=== PATIENT | female | born 1940 | race Caucasian/White ===

== ENCOUNTER 2017-04-08 10:46 | Emergency (ER) | payer MEDICARE ==
[2017-04-08] MEDS ORDERED: ONDANSETRON HCL IV 4 MG/2 ML VIAL IV ONE (11:09)
[2017-04-08] MEDS ORDERED: 0.9 % SODIUM CHLORIDE 1,000 ML BAG IV ONE (11:09)
[2017-04-08] MEDS ORDERED: HYDROMORPHONE HCL 1 MG/ML SYRINGE IVP ONE (11:10)
--- NOTE | 2017-04-08 11:15 | Emergency Department Record ---
History of Present Illness - General Chief Complaint: Abdominal Pain Stated Complaint: abd pain and cramps Time Seen by Provider: 04/08/17 11:02 Source: Patient Mode of Arrival: Ambulatory Limitations: No limitations - History of Present Illness Initial Comments: The patient is here due to crampy diffuse AP off and on for 4 days. It started 4 days ago and then did improve somewhat and then worsened in the last 24 hours. She has had loose stools and did take some Pepto Bismal yesterday. Today she stated she had some dark diarrheal stools. The patient denies any fever, chills, back pain, CP or SOB. The patient denies any hx of any abdominal surgeries. MD Complaint: Abdominal pain Onset/Timin -: Days(s) Radiation: LLQ, RLQ Severity: Moderate Quality: Aching, Cramping Improves With: Nothing Treatments Prior to Arrival: Antacids - Related Data Patient : No Home Medications Medication Instructions Recorded Confirmed Last Taken Loperamide HCl [Imodium A-D] 2 mg PO DAILY PRN 04/08/17 04/08/17 1 Day Ago ~04/07/17 Previous Rx's Medication Instructions Recorded Acetaminop W/ Codeine 300/30Mg 1 tab PO Q6H #12 tab 04/08/17 [Tylenol #3] Ondansetron [Zofran Odt] 4 mg SL .Q4-6H PRN #12 tab.rapdis 04/08/17 Sulfamethoxazole/Trimethoprim 1 tab PO BID #10 tab 04/08/17 [Bactrim Ds] Allergies Allergy/AdvReac Type Severity Reaction Status Date / Time bee venom protein (honey bee) Allergy SWELLING Verified 04/08/17 11:06 OF THE FACE Travel Screening - Travel/Exposure Within Last 30 Days Have you traveled within the last 30 days?: No - Travel/Exposure Within Last Year Have you traveled outside the [place] in the last year?: No - Additonal Travel Details Have you been exposed to anyone with a communicable illness?: No - Travel Symptoms Symptom Screening: None Review of Systems Constitutional: Denies: Chills, Fever, Malaise Eyes: Denies: Eye discharge ENT: Denies: Congestion Respiratory: Denies: Cough, Dyspnea Past Medical History - SOCIAL HISTORY Smoking Status: Former smoker Alcohol Use: None Drug Use: None - RESPIRATORY Hx Respiratory Disorders: No - CARDIOVASCULAR Hx Cardio Disorders: No - NEURO Hx Neuro Disorders: No - GI Hx Diverticulitis: Yes Comment:: gall stones - Hx Genitourinary Disorders: No - ENDOCRINE Hx Diabetes: No Hx Thyroid Disease: No - PSYCH Hx Anxiety: Yes Hx Depression: Yes - HEMATOLOGY/ONCOLOGY Hx Hematology/Oncology Disorders: No Family Medical History Any Significant Family History?: Yes Hx Heart Disease: Father Physical Exam - General General Appearance: Alert, Oriented x3, Cooperative, No acute distress - Head Head exam: Atraumatic, Normocephalic, Normal inspection - Eye Eye exam: Normal appearance, PERRL - Neck Neck exam: Normal inspection, Full ROM. negative: Tenderness - Respiratory Respiratory exam: Normal lung sounds bilaterally. negative: Respiratory distress - Cardiovascular Cardiovascular Exam: Regular rate, Normal rhythm, Normal heart sounds - GI/Abdominal GI/Abdominal exam: Soft, Normal bowel sounds, Tenderness (There is diffuse abdominal tenderness in all 4 quads.). negative: Rebound, Rigid - Extremities Extremities exam: Normal inspection, Full ROM, Normal capillary refill. negative: Tenderness - Neurological Neurological exam: Alert, Normal gait, Oriented X3. negative: Abnormal gait, Motor sensory deficit Course Vital Signs 04/08/17 10:51 Temperature 97.5 F L Pulse Rate 87 Respiratory 16 Rate Blood Pressure 116/61 Pulse Ox 96 - Reevaluation(s) Reevaluation #1: The patient is doing better at this time. She is drinking her oral contrast and feels less pain with no nausea. 04/08/17 11:34 Reevaluation #2: The patient is doing better. Presently she has no pain, nausea or vomiting. On exam her abdomen was very soft and nontender in 4 quads. I did explain to her that the CT did not demonstrate any cause of the pain but she will be referred to Dr. Richardson for a Colonoscopy. 04/08/17 13:58 Medical Decision Making - Data Complexity MDM Data: Labs Ordered and/or Reviewed, X-Ray Ordered and/or Reviewed - Lab Data Result diagrams: 04/08/17 11:10 04/08/17 11:10 - Radiology Data Radiology results: Report reviewed (CT: Distended GB but no signs of active infection. Focal thickening proximal descending colon, Rec Colonoscopy.) Disposition Disposition: Discharge Clinical Impression: Diarrhea Qualifiers: Diarrhea type: unspecified type Qualified Code(s): R19.7 - Diarrhea, unspecified Disposition: Home, Self-Care Condition: (2) Stable Instructions: Abdominal Pain (ED) Additional Instructions: Please take the Tylenol # 3 and Zofran if needed. Please take the Bactrim as directed. Please see your PCP for recheck later this week and return to the ER for any worsening pain, fever, or vomiting. Prescriptions: Acetaminop W/ Codeine 300/30Mg [Tylenol #3] 1 tab PO Q6H #12 tab Ondansetron [Zofran Odt] 4 mg SL .Q4-6H PRN #12 tab.rapdis PRN Reason: Nausea Sulfamethoxazole/Trimethoprim [Bactrim Ds] 1 tab PO BID #10 tab Referrals: [facility] [Provider Group] Forms: Patient Portal Access Time of Disposition: 14:03 Quality - Quality Measures Quality Measures: N/A - Blood Pressure Screening View Details: Yes Does Patient Have Any of the Following: No Blood Pressure Classification: Normal BP Reading Systolic Measurement: 116 Diastolic Measurement: 61 Screening for High Blood Pressure: < Normal BP, F/U Not Required > [G8783]
[2017-04-08 11:21] LABS: BASO % 0.2 % (0-6); EOS % 1.1 % (0-6); GRAN % 76.7 % (47-80); HEMATOCRIT 41.3 % (35.0-47.0); HEMOGLOBIN 14.4 gm/dl (11.6-16.0); LYMPH % 11.6 % (16-45); MEAN CELL VOLUME 93.9 fl (81-97); MEAN CORPUSCULAR HEMOGLOBIN 32.7 pg (27-33); MEAN CORPUSCULAR HGB CONC 34.9 g/dl (32-36); MEAN PLATELET VOLUME 8.9 fl (7.4-10.4); MONO % 10.4 % (0-9); PLATELET COUNT 282 K/uL (130-400); WHITE BLOOD COUNT W/O DIFF 6.4 K/uL (4.2-12.2)
[2017-04-08 11:22] LABS: URINE APPEARANCE CLEAR; URINE BILIRUBIN NEGATIVE (NEGATIVE); URINE BLOOD MODERATE (NEGATIVE); URINE COLOR YELLOW; URINE GLUCOSE (UA) NEGATIVE (NEGATIVE); URINE KETONE NEGATIVE (NEGATIVE); URINE LEUKOCYTE ESTERASE MODERATE (NEGATIVE); URINE NITRITE POSITIVE (NEGATIVE); URINE PROTEIN NEGATIVE (NEGATIVE); URINE UROBILINOGEN 0.2 E.U./dL (0.20 - 1.00)
[2017-04-08 11:38] LABS: BLOOD UREA NITROGEN 7 mg/dL (8-23); CREATININE 0.6 mg/dL (0.5-0.9); EST GLOMERULAR FILTRATION RATE > 60 mL/min; TOTAL PROTEIN 7.4 g/dL (6.6-8.7)
[2017-04-08 11:40] LABS: GLUCOSE,RANDOM 94 mg/dL (74-109); URINE BACTERIA 2+; URINE MUCUS LIGHT; URINE WBC 16 - 20 (0-2/hpf)
[2017-04-08 11:43] LABS: ALBUMIN 4.3 g/dL (4.0-5.0); ALKALINE PHOSPHATASE 58 U/L (35-104); ALT/SGPT 13 U/L (<33); AST/SGOT 27 U/L (10.0-35.0); LIPASE 11 U/L (13-60)
[2017-04-08 11:44] LABS: BILIRUBIN,DIRECT < 0.2 mg/dL (0-0.3)
--- NOTE | 2017-04-08 14:46 | CT SCAN REPORT ---
EXAM: EMERGENCY CT OF THE ABDOMEN AND PELVIS WITH CONTRAST HISTORY: ABDOMINAL PAIN, CRAMPING, DIARRHEA. TECHNIQUE: Axial CT scan of the abdomen and pelvis was performed following both oral and IV contrast administration, utilizing a dose of 100 ml of Omnipaque 300 as the IV contrast. Comparison: No prior CT with which to compare. FINDINGS: The gallbladder is relatively distended although no actual gallstones are seen and no adjacent inflammatory type change is identified. No definite hepatic, splenic, adrenal, pancreatic, or renal mass identified. Oral contrast given has passed throughout the small bowel to the rectum with no bowel obstruction evident. There is a focal area of persistent thickening of the colon wall in the region of the upper descending colon evident on both the routine series and the delay series. There is no obstruction proximal to this and this could just be relate to some spasm, but the possibility of a developing annular mass in this location cannot be excluded. Follow-up colonoscopy is suggested. The appendix is visualized and appears negative. Mildly thick walled appearance of the urinary bladder is nonspecific, although may simply be due to incomplete distention. There is some bibasilar linear fibrosis or discoid atelectasis. No free intraperitoneal air or free intraperitoneal fluid identified. Prominent degenerative change in the facets of the lower lumbar spine and degenerative disk disease at the lumbosacral interspace. 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 IMPRESSION: 1. APPEARANCE SUGGESTING A FOCAL WALL THICKENING IN THE REGION OF THE UPPER DESCENDING COLON, NONSPECIFIC, BUT A DEVELOPING ANNULAR CARCINOMA CANNOT BE EXCLUDED AND COLONOSCOPY IS SUGGESTED. THERE IS NO ASSOCIATED BOWEL OBSTRUCTION WITH THIS. 2. DISTENDED GALLBLADDER, BUT NO GALLSTONES OR OTHER FINDINGS TO SUGGEST ACUTE CHOLECYSTITIS EVIDENT. 3. DEGENERATIVE CHANGE IN THE LOWER LUMBAR SPINE, PUBIC SYMPHYSIS, AND RIGHT HIP. 4. DIFFUSELY MILDLY THICK WALLED APPEARANCE OF THE BLADDER IS NONSPECIFIC ALTHOUGH MAY SIMPLY BE DUE TO INCOMPLETE DISTENTION. JOB NUMBER: [id number] [facility]
== END 2017-04-08 14:20 | disposition home or self-care (01) ==
LOC: ER 10:46
DX: R19.7 Diarrhea, unspecified (principal); R10.84 Generalized abdominal pain
CPT/HCPCS: 99284 ×2; 96374; 96375; 96361; 83605; 83690; 85025; 80076; 80048; 81001; 89055; 82272; 74177; Q9967; J2405; J1170; J7030

== ENCOUNTER 2017-09-10 22:00 | Emergency (ER) | payer MEDICARE ==
[2017-09-10] MEDS ORDERED: ONDANSETRON HCL IV 4 MG/2 ML VIAL IVP ONE ×2 (22:05→23:43)
[2017-09-10] MEDS ORDERED: MORPHINE SULFATE 4MG/ML PREFILLED SYRINGE IVP ONE ×2 (22:05→23:43)
--- NOTE | 2017-09-10 22:10 | Emergency Department Record ---
History of Present Illness - General Chief Complaint: Fall Injury Stated Complaint: FELL AT HOME/ PAIN LT HIP Time Seen by Provider: 09/10/17 22:04 Source: Patient, EMS Mode of Arrival: EMS Limitations: No limitations - History of Present Illness Initial Comments: 77 yo female presents to ED for evaluation of left hip pain following a mechanical fall JPTA. Patient denies injury to the head or neck, complains of moderate-severe left hip pain following her fall. Patient denies numbness or tingling to the left lower extremity, denies pain to the knee or ankle on examination. Patient denies health problems at her baseline, and denies any medications or allergies to medications. MD Complaint: Fall Onset/Timin -: Minutes(s) Fall From: Standing When Fall Occurred: Just prior to arrival Fall Witnessed: No Place Fall Occurred: Home Loss of Consciousness: None Prolonged Down Time?: No Symptoms Prior to Fall: None Location: Pelvis Severity: Severe Quality: Aching Context: Tripped/slipped - Nidia Coma Scale Eye Response: (4) Open spontaneously Motor Response: (6) Obeys commands Verbal Response: (5) Oriented Nidia Total: 15 - Related Data Allergies Allergy/AdvReac Type Severity Reaction Status Date / Time bee venom protein (honey bee) Allergy SWELLING Verified 04/08/17 11:06 OF THE FACE Review of Systems Constitutional: Denies: Chills, Fever, Malaise, Night sweats Eyes: Denies: Eye discharge, Eye pain ENT: Denies: Congestion, Ear pain, Epistaxis Respiratory: Denies: Cough, Dyspnea Cardiovascular: Denies: Chest pain, Dyspnea on exertion Endocrine: Denies: Fatigue, Heat or cold intolerance Gastrointestinal: Denies: Abdominal pain, Nausea, Vomiting Genitourinary: Denies: Incontinence, Retention Musculoskeletal: Reports: Arthralgia. Denies: Back pain, Gout, Joint swelling Skin: Denies: Bruising, Change in color Neurological: Denies: Confusion, Headache Psychiatric: Denies: Anxiety Hematological/Lymphatic: Denies: Anemia, Blood Clots Past Medical History - SOCIAL HISTORY Smoking Status: Former smoker - RESPIRATORY Hx Respiratory Disorders: No - CARDIOVASCULAR Hx Cardio Disorders: No - NEURO Hx Neuro Disorders: No - GI Hx Diverticulitis: Yes Comment:: gall stones - Hx Genitourinary Disorders: No - ENDOCRINE Hx Diabetes: No Hx Thyroid Disease: No - PSYCH Hx Anxiety: Yes Hx Depression: Yes - HEMATOLOGY/ONCOLOGY Hx Hematology/Oncology Disorders: No Family Medical History Hx Heart Disease: Father Physical Exam - General General Appearance: Alert, Oriented x3, Cooperative, Moderate distress Limitations: No limitations - Head Head exam: Atraumatic, Normocephalic, Normal inspection Head exam detail: negative: Abrasion, Contusion, Aguillon's sign, General tenderness, Hematoma, Laceration - Eye Eye exam: Normal appearance. negative: Conjunctival injection, Periorbital swelling, Periorbital tenderness, Scleral icterus - ENT Ear exam: negative: Auricular hematoma, Auricular trauma Nasal Exam: negative: Active bleeding, Discharge, Dried blood, Foreign body Mouth exam: negative: Drooling, Laceration, Muffled voice, Tongue elevation - Neck Neck exam: Normal inspection. negative: Meningismus, Tenderness - Respiratory Respiratory exam: Normal lung sounds bilaterally. negative: Rales, Respiratory distress, Rhonchi, Stridor - Cardiovascular Cardiovascular Exam: Regular rate, Normal rhythm, Normal heart sounds Peripheral Pulses: 3+: Dorsalis Pedis (L) - GI/Abdominal GI/Abdominal exam: Soft. negative: Rebound, Rigid, Tenderness - Rectal Rectal exam: Deferred - exam: Deferred - Extremities Extremities exam: Tenderness, Other (TTP over the lateral left hip, shortening of the LLE, strong DPP, no pain with palpation over the left knee/ankle on examination.). negative: Calf tenderness, Pedal edema - Back Back exam: Denies: CVA tenderness (R), CVA tenderness (L) - Neurological Neurological exam: Alert, Oriented X3 - Psychiatric Psychiatric exam: Normal affect, Normal mood - Skin Skin exam: Normal color. negative: Abrasion Type of lesion: negative: abrasion Course - Reevaluation(s) Reevaluation #1: 09/10/17 22:51 Labs reviewed, CO2 18, AG 23. Labs are otherwise grossly unremarkable for an acute process. Reevaluation #2: 09/10/17 23:07 Left Hip: Femoral neck fracture Chest: Chronic changes, nothing acute CT Brain: Patient and her family were updated on all results, will initiate transfer to [facility] per patient choice for orthopedic evaluation. Reevaluation #3: 09/10/17 23:23 Case was discussed with Dr. Parks, will accept transfer pending bed assignment. Medical Decision Making - Lab Data Result diagrams: 09/10/17 22:10 09/10/17 22:10 Disposition Disposition: Transfer Clinical Impression: Femoral neck fracture Qualifiers: Encounter type: initial encounter Fracture type: closed Laterality: left Qualified Code(s): S72.002A - Fracture of unspecified part of neck of left femur , initial encounter for closed fracture Disposition: Acute Care Hospital Transfer Transfer To: [facility] Reason For Transfer: Orthopedic Consultation Accepting Physician: Charly Time Discussed w/Accepting Physician: 23:09 Forms: Patient Portal Access Time of Disposition: 23:09 Quality - Quality Measures Quality Measures: N/A - Blood Pressure Screening Does Patient Have Any of the Following: No Blood Pressure Classification: Hypertensive Reading Systolic Measurement: 161 Diastolic Measurement: 101 Screening for High Blood Pressure: < First Hypertensive BP, F/U Documented > [ G8950] First Hypertensive Follow-up Interventions: Referral to alternative/primary care provider.
[2017-09-10 22:15] LABS: BASO % 0.1 % (0-6); EOS % 0.3 % (0-6); GRAN % 78.9 % (47-80); HEMATOCRIT 42.1 % (35.0-47.0); HEMOGLOBIN 14.3 gm/dl (11.6-16.0); LYMPH % 13.7 % (16-45); MEAN CELL VOLUME 91.9 fl (81-97); MEAN CORPUSCULAR HEMOGLOBIN 31.2 pg (27-33); MEAN PLATELET VOLUME 8.9 fl (7.4-10.4); PLATELET COUNT 337 K/uL (130-400); RED BLOOD COUNT 4.58 M/uL (3.80-5.40); RED CELL DISTRIBUTION WIDTH 13.5 % (11.5-14.5); WHITE BLOOD COUNT W/O DIFF 10.5 K/uL (4.2-12.2)
[2017-09-10] MEDS ORDERED: 0.9 % SODIUM CHLORIDE 1000ML 1,000 ML IV SCH (22:15)
[2017-09-10 22:29] LABS: BLOOD UREA NITROGEN 6 mg/dL (8-23); CREATININE 0.6 mg/dL (0.5-0.9); EST GLOMERULAR FILTRATION RATE > 60 mL/min
[2017-09-10 22:30] LABS: TOTAL PROTEIN 7.4 g/dL (6.6-8.7)
[2017-09-10 22:32] LABS: GLUCOSE,RANDOM 108 mg/dL (74-109)
[2017-09-10 22:34] LABS: ALBUMIN 3.7 g/dL (4.0-5.0); ALKALINE PHOSPHATASE 69 U/L (35-104); ALT/SGPT 13 U/L (<33); AST/SGOT 23 U/L (10.0-35.0)
--- NOTE | 2017-09-12 13:58 | CT SCAN REPORT ---
EXAM: CT OF THE BRAIN WITHOUT CONTRAST HISTORY: FALL. TECHNIQUE: CT of the brain without contrast was obtained. Comparison: None. FINDINGS: The globes are intact. The paranasal sinuses and mastoid air cells are unremarkable. No displaced or depressed skull fracture. No intra or extraaxial hemorrhage. CT is limited for the evaluation of acute infarct. No CT evidence for large or territorial acute infarct. No mass or midline shift. Mild diffuse atrophy with minor small vessel ischemic change. There is also a small right parietal scalp hematoma. IMPRESSION: ATROPHY. SMALL VESSEL ISCHEMIC CHANGE. SMALL RIGHT PARIETAL SCALP HEMATOMA. [facility]BER: [id number] [facility]
--- NOTE | 2017-09-12 14:18 | RADIOLOGY REPORT ---
EXAM: CHEST, SINGLE VIEW HISTORY: PATIENT TRIPPED OVER RUG AND FELL, BROKE LEFT HIP. TECHNIQUE: A single frontal view of the chest was obtained. Comparison: None. Encounter: Initial. FINDINGS: The heart size is within normal limits. Calcification and mild torsion of the aorta. Lordotic positioning on the film Mild fracture deformity posteriorly in the right fifth rib. This is probably an old healed fracture although correlation with point tenderness suggested. Minor linear fibrosis or discoid atelectasis right base. No pleural effusion or pneumothorax evident. Hypertrophic spurring in the spine. Diffuse osteopenia consistent with osteoporosis. IMPRESSION: 1. MINOR LINEAR FIBROSIS OR DISCOID ATELECTASIS RIGHT BASE. 2. FRACTURE DEFORMITY POSTEROLATERALLY RIGHT FIFTH RIB IS LIKELY CHRONIC ALTHOUGH CORRELATION WITH POINT TENDERNESS SUGGESTED. 3. OSTEOPOROSIS. DEGENERATIVE CHANGES IN THE SPINE. [facility]BER: [id number] [facility]
--- NOTE | 2017-09-12 14:21 | RADIOLOGY REPORT ---
EXAM: LEFT HIP WITH AP PELVIS HISTORY: PATIENT TRIPPED OVER RUG AND FELL WITH LEFT HIP PAIN. TECHNIQUE: AP view of the pelvis and AP and lateral views of the left hip were obtained. Comparison: None. Encounter: Initial. FINDINGS: Diffuse osteopenia consistent with osteoporosis. There is a left femoral neck fracture which is probably subcapital in location. There is some superior displacement of the femoral shaft relative to the femoral head. No dislocation at the left hip evident. IMPRESSION: 1. OSTEOPOROSIS. 2. SUBCAPITAL LEFT FEMORAL NECK FRACTURE WITH SUPERIOR DISPLACEMENT OF THE DISTAL FRACTURE FRAGMENT RELATIVE TO THE FEMORAL HEAD. JOB NUMBER: [id number] [facility]
== END 2017-09-11 00:51 | disposition short-term general hospital (02) ==
LOC: ER 22:00
DX: S72.002A Fracture of unspecified part of neck of left femur, initial encounter for closed fracture (principal); R11.0 Nausea; W01.10XA Fall on same level from slipping, tripping and stumbling with subsequent striking against unspecified object, initial encounter; Y92.009 Unspecified place in unspecified non-institutional (private) residence as the place of occurrence of the external cause; Z87.891 Personal history of nicotine dependence
CPT/HCPCS: 99285 ×2; 96376; 96374; 96375; 85025; 80053; 71045; 73502; 70450; J2405 ×2; J2274 ×2; J7030

== ENCOUNTER 2018-11-09 08:20 | Emergency (ER) | payer MEDICARE ==
--- NOTE | 2018-11-09 08:40 | Emergency Department Record ---
History of Present Illness - General Chief complaint: Extremity Problem Stated complaint: NEEDS RING CUT OFF Time Seen by Provider: 11/09/18 08:23 Source: Patient Mode of Arrival: Ambulatory Limitations: No limitations - History of Present Illness Initial comments: The patient has had pain over the L 4th finger due to her ring being to tight. She denies any trauma or injury but is unable to remove the ring. MD Complaint: Extremity pain Onset/Timin -: Days(s) Location: Left, Hand History of Same: No Radiation: None Severity scale (1-10): 5 Associated Symptoms: Denies other symptoms - Related Data Allergies Allergy/AdvReac Type Severity Reaction Status Date / Time bee venom protein (honey bee) Allergy SWELLING Verified 04/08/17 11:06 OF THE FACE Travel Screening - Travel/Exposure Within Last 30 Days Have you traveled within the last 30 days?: No - Travel Symptoms Symptom Screening: None Review of Systems Constitutional: Denies: Chills, Fever Past Medical History - SOCIAL HISTORY Smoking Status: Former smoker Alcohol Use: None, Occasional - RESPIRATORY Hx Respiratory Disorders: No - CARDIOVASCULAR Hx Cardio Disorders: No - NEURO Hx Neuro Disorders: No - GI Hx GI Disorders: Yes Hx Diverticulitis: Yes Comment:: gall stones - Hx Genitourinary Disorders: No - ENDOCRINE Hx Diabetes: No Hx Thyroid Disease: No - MUSCULOSKELETAL Hx Musculoskeletal Disorders: Yes - PSYCH Hx Psych Problems: No Hx Anxiety: Yes Hx Depression: Yes - HEMATOLOGY/ONCOLOGY Hx Hematology/Oncology Disorders: No Family Medical History Any Significant Family History?: Yes Hx Heart Disease: Father Physical Exam - General General Appearance: Alert, Oriented x3, Cooperative, No acute distress - Extremities Extremities exam: negative: Normal inspection (There is a ring on the L 4th finger that is clearly constricting the finger. The L hand and fingers are NVI.) Course Vital Signs 11/09/18 08:21 Temperature 97.9 F Pulse Rate 72 Respiratory 18 Rate Blood Pressure 184/92 Pulse Ox 96 - Reevaluation(s) Reevaluation #1: The L 4th finger ring was removed with a ring cutter. There were no complications and the patient's mild pain was resolved. 11/09/18 08:39 Disposition Disposition: Discharge Clinical Impression: Injury of left ring finger Qualifiers: Encounter type: initial encounter Qualified Code(s): S69.92XA - Unspecified injury of left wrist, hand and finger(s), initial encounter Disposition: Home, Self-Care Condition: (2) Stable Instructions: Finger Sprain (ED) Additional Instructions: Return to the ER for any problems. Forms: Patient Portal Access Time of Disposition: 08:40 Quality - Quality Measures Quality Measures: N/A - Blood Pressure Screening View Details: Yes Does Patient Have Any of the Following: No Blood Pressure Classification: Hypertensive Reading Systolic Measurement: 184 Diastolic Measurement: 92 Screening for High Blood Pressure: < First Hypertensive BP, F/U Documented > [G8950] First Hypertensive Follow-up Interventions: Referral to alternative/primary care provider.
== END 2018-11-09 08:57 | disposition home or self-care (01) ==
LOC: ER 08:20
DX: S60.445A External constriction of left ring finger, initial encounter (principal); W49.04XA Ring or other jewelry causing external constriction, initial encounter; Y92.007 Garden or yard of unspecified non-institutional (private) residence as the place of occurrence of the external cause
CPT/HCPCS: 99282